=== PATIENT | female | born 1970 | race Caucasian/White ===

== ENCOUNTER 2017-06-20 05:25 | Day surgery (SDC) | payer OTHER, SELFPAY ==
[2017-06-16 14:04] LABS: Hematocrit 42.2 % (37-47); Hemoglobin 13.5 g/dl (12.0-15.0); Mean Corpuscular Hgb 28.1 pg (27.0-32.0); Mean Corpuscular Volume 87.9 fL (81-99); Mean Platelet Vol. 9.8 fl (6.2-12.0); Platelet Count 244 K/mm3 (150-450); RBC Distribution Width CV 12.6 % (11.6-14.6); RBC Distribution Width SD 40.5 fl (35.1-43.9); White Blood Count 7.8 K/mm3 (4.4-11.0)
[2017-06-16 14:06] LABS: Scan Indicated on CBC? Y/N NO
[2017-06-16 14:16] LABS: International Normalized Ratio 1.1; Prothrombin Time (Protime)PT. 13.7 SECONDS (11.7-14.9)
[2017-06-16 14:17] LABS: Partial Thromboplast Time 29.9 Seconds (24.1-36.2)
[2017-06-16 14:35] LABS: AST(SGOT) 13 U/L (15-37); Alanine Aminotransfer ALT/SGPT 17 U/L (13-56); Albumin, Serum 3.5 g/dL (3.2-5.0); Alkaline Phosphatase 73 U/L (45-117); Bilirubin, Direct < 0.05 mg/dL (0.00-0.30); Globulin 3.5 g/dL (2.2-4.2)
[2017-06-20] VITALS (9 sets, daily range): BP systolic 139–171; BP diastolic 75–89; PULSE 56–80; RESP 16; TEMP 36.4–37.3; O2SAT 94–100; BMI 31.0
--- NOTE | 2017-06-20 05:32 | EKG12_ITS ---
Test Reason : Blood Pressure : / mmHG Vent. Rate : 062 BPM Atrial Rate : 062 BPM P-R Int : 162 ms QRS Dur : 104 ms QT Int : 426 ms P-R-T Axes : 052 025 017 degrees QTc Int : 432 ms Normal sinus rhythm Low voltage QRS Borderline ECG Confirmed by BRANDON SCOTT MD ([id number]), commercial production editor MARIAH GARCIA ([id number]) on 06/23/2017 2:29:57 PM Referred By: Ryan White Confirmed By:BRANDON SCOTT MD
[2017-06-20] MEDS: Cefazolin 2 GM in 0.9% Normal Saline 100 ML IV (07:09)
--- NOTE | 2017-06-20 07:09 | RAD_ITS ---
STUDY: INTRAOPERATIVE CHOLANGIOGRAM. REASON FOR EXAM: Female, 47 years old. Laparoscopic cholecystectomy. FLUOROSCOPY TIME (if supplied): (20.5 seconds) minutes/seconds TECHNIQUE: An intraoperative cholangiogram was performed by the surgeon. Imaging was submitted. COMPARISON: None. FINDINGS: The intrahepatic biliary ducts are unremarkable. The common bile duct is unremarkable as well. No intraluminal filling defect is seen. There is free flow of contrast into the duodenum. RAD/Cholangiogram/ O R,Initial IMPRESSION: Unremarkable intraoperative cholangiogram. Electronically Signed: Burke Ford MD at 9:01 EDT Tel [phone], Service support ,
--- NOTE | 2017-06-20 07:15 | GALL_PTH ---
PATIENT: LEWIS SHUKLA LOC: [facility] – [place] U#:[id number] AGE/SX: 47/F ROOM: RE06/20/[address]: Dr. Ryan White MD : 1970 BED: DIS: 06/20/2017 SPEC #: [id number] RECD: 06/20/17 13:05 STATUS: OBED SHARMAINE #: [id number] KEY: 06/20/17 07:[address]: Ryan White DEPT: SURGICAL PATHOLOGY RECD BY: Harsha Foster ENTERED: 06/20/17 13:05 SP TYPE: [facility] DR: Dr. Abdifatah Marc DO Tissues: Gallbladder, NOS Procedures: Surgery Specimen Level III HEADER OPERATION: Laparoscopic, cholecystomy with operative cholangiograms PRE-OP DIAGNOSIS: Biliary dyskinesia, right upper quadrant pain POST-OP DIAGNOSIS: Right upper quadrant pain, biliary dyskinesia TISSUE SUBMITTED: Gallbladder MICROSCOPIC DIAGNOSIS Gallbladder, cholecystectomy: Mild chronic cholecystitis. AM:reagan 06/21/17 MICROSCOPIC DESCRIPTION Slides are reviewed. GROSS DESCRIPTION Received is one container labeled with the patient's name and designated gallbladder. The specimen consists of a gallbladder measuring 7 cm in length and 3 cm in diameter. The external surface is pink-barfield, smooth and glistening for the most part. Focally it is granular, hemorrhagic and contains cautery artifact. The gallbladder contains green-yellow mucoid bile. No stones are identified in the container or in the gallbladder. The mucosa is bile-stained and without any mass lesions. The gallbladder wall measures 0.3 cm in thickness. Sound Engineering Technician sections from the gallbladder and the cystic duct are submitted in one cassette. / SJ:reagan 06/20/17 TC:3 CPT: 79671
[2017-06-20] MEDS: Bupivacaine Mpf 0.5% 30 ML VIAL (07:45)
--- NOTE | 2017-06-20 08:26 | PCM.DC.GB ---
Discharge Diet: Light diet - advance as tolerated Discharge Activity: May Not Drive - for 2-3 days or while taking narcotic pain medications., - - Do not drive, work heavy equipment or sign legal documents for 24 hours. May shower in (days): 1 - with the bandage in place. Additional Activity Instructions:: Pain medication may cause nausea. You should typically eat light foods as you take your pain medications. Pain medication may also cause constipation. If this is a problem for you, please discuss with your doctor. Call your doctor if your incision/area has: Continuous Slow Oozing, Sudden Increased Bleeding, Increased Pain/ Swelling, Increased Redness, Foul Smelling Discharge Call your doctor if you observe: Fever of 101 or Higher Suture Line Care: Avoid Pulling/Pushing, Avoid Pinching/Bending Additional Dressing/Incision Instructions:: Leave operative bandaids on for 2 days. When you remove dressing, leave Steri-Strips on until your follow-up appointment, or until the Steri-Strips fall off on their own. Allergies/Adverse Reactions: Allergies clarithromycin [From Biaxin] Adverse Reaction (Verified 06/15/17 14:40) shakes fentanyl Adverse Reaction (Verified 06/15/17 14:40) made me feel weird latex Adverse Reaction (Verified 06/15/17 14:40) Itching Medications to take at Discharge Brompheniramine/Pseudoephed/Dm [Zwszolutlq-Ggsrabovfty-Qk Syr] 5 - 10 ml PO Q6H PRN 06/15/17 Cholecalciferol (Vitamin D3) [Vitamin D3] 2,000 unit PO DAILY 06/15/17 Lansoprazole [Prevacid] 15 mg PO DAILY 06/15/17 Vitamin B Complex 1 each PO DAILY 06/15/17 Oxycodone [Oxyir] 5 mg PO Q4H PRN PRN 7 Days #14 tab 06/20/17 The following prescriptions were given: Oxycodone [Oxyir] 5 mg PO Q4H PRN PRN 7 Days #14 tab PRN Reason: Pain Primary Care Physician: Abdifatah Marc DO [Primary Care Provider] - Please Follow Up With: Ryan White MD - Please call [phone] to schedule an appointment. When: 7 days after your surgery
--- NOTE | 2017-06-20 08:26 | PCM.OPRPT ---
Report of Operation Date of Procedure: 06/20/17 Pre-Operative Diagnosis: biliary colic, biliary dyskinesia Post-Operative Diagnosis: biliary colic, biliary dyskinesia, small cystic duct otherwise normal IOC Surgery/Procedure Performed:: laparoscopic [id number] with intraoperative cholangiogram cmo: Sagar Hernadez Type of Anesthesia:: General Anesthesiologist: Cornell Meek - ASA2 Specimen's removed: gallbladder Estimated Blood Loss (mL): <5 Fluids Replaced: 1500 Description of Procedure: The patient was brought to the operating suite. Sign in was performed verifying patient, site, position, SCIP antibiotic prophylaxis- 2 gm of Ancef and DVT prophylaxis with SCDs. Following induction of general anesthetic. The patients abdomen was prepped and draped in the usual fashion. Timeout was performed verifying patient, site, position. Local anesthetic was injected below the umbilicus. Incision made and dissection carried down to the umbilical root fascia. 2 stay sutures were placed. Incision made in the fascia, the peritoneum entered under direct visualization. A 10 mm Bernstein trocar was inserted and secured with the stay sutures. Pneumoperitoneum to 15 mmHg was insufflated. Visual inspection revealed few adhesions. The gallbladder and otherwise normal appearing intra-abdominal structures. 3 right upper quadrant 5 ports were placed in the standard position. The gallbladder was grasped retracted upward and outward. Dissection was carried out in Calots triangle. When a critical view of the neck of the gallbladder funneling of the cystic duct with no signs of aberrant ductal structures were seen, a clip was placed on the neck of the gallbladder cystic duct junction. A partial ductotomy was made. A Cholangiocath was attempted to be inserted into the duct. the duct was quite small and a standard Cholangiocath was not able to advance to the cystic duct. A smaller firm metal duct was able to be inserted into the duct and secured with a clip. Intraoperative cholangiogram was performed demonstrating filling of the cystic duct filling the common bile duct and emptying into the duodenum without signs of obstruction area and the clip and catheter were removed. 2 clips placed on the cystic duct and the cystic duct divided. Dissection was continued until the cystic artery was clearly dissected and identified. The artery was then doubly clipped proximally singly clipped distally and divided. The gallbladder was then dissected free from the gallbladder fossa using electrocautery. The gallbladder was placed in an Endobag and removed through the umbilical port site. An 0 PDS opmvea-li-bysgn suture was placed around the umbilical port site defect. Pneumoperitoneum was reestablished. The gallbladder fossa was checked for hemostasis. With good hemostasis, the area was irrigated and aspirated to clear. 5 ports were removed under direct visualization with no signs of bleeding. Pneumoperitoneum was released. The Bernstein trocar was removed. The umbilical fascial suture was secured area did skin was closed with interrupted 4-0 Monocryl subcuticular sutures. Steri-Strips and bandages were applied. The patient was brought to recovery room in stable condition.
--- NOTE | 2017-06-20 08:29 | OP.PCM_ITS ---
Report of Operation Date of Procedure: 06/20/17 Pre-Operative Diagnosis: biliary colic, biliary dyskinesia Post-Operative Diagnosis: biliary colic, biliary dyskinesia, small cystic duct otherwise normal IOC Surgery/Procedure Performed:: laparoscopic [id number] with intraoperative cholangiogram web programmer: Sagar Hernadez Type of Anesthesia:: General Anesthesiologist: Cornell Meek - ASA2 Specimen's removed: gallbladder Estimated Blood Loss (mL): <5 Fluids Replaced: 1500 Description of Procedure: The patient was brought to the operating suite. Sign in was performed verifying patient, site, position, SCIP antibiotic prophylaxis- 2 gm of Ancef and DVT prophylaxis with SCDs. Following induction of general anesthetic. The patient?s abdomen was prepped and draped in the usual fashion. Timeout was performed verifying patient, site , position. Local anesthetic was injected below the umbilicus. Incision made and dissection carried down to the umbilical root fascia. 2 stay sutures were placed. Incision made in the fascia, the peritoneum entered under direct visualization. A 10 mm Bernstein trocar was inserted and secured with the stay sutures. Pneumoperitoneum to 15 mmHg was insufflated. Visual inspection revealed few adhesions. The gallbladder and otherwise normal appearing intra- abdominal structures. 3 right upper quadrant 5 ports were placed in the standard position. The gallbladder was grasped retracted upward and outward. Dissection was carried out in Calot?s triangle. When a critical view of the neck of the gallbladder funneling of the cystic duct with no signs of aberrant ductal structures were seen, a clip was placed on the neck of the gallbladder cystic duct junction. A partial ductotomy was made. A Cholangiocath was attempted to be inserted into the duct. the duct was quite small and a standard Cholangiocath was not able to advance to the cystic duct. A smaller firm metal duct was able to be inserted into the duct and secured with a clip. Intraoperative cholangiogram was performed demonstrating filling of the cystic duct filling the common bile duct and emptying into the duodenum without signs of obstruction area and the clip and catheter were removed. 2 clips placed on the cystic duct and the cystic duct divided. Dissection was continued until the cystic artery was clearly dissected and identified. The artery was then doubly clipped proximally singly clipped distally and divided. The gallbladder was then dissected free from the gallbladder fossa using electrocautery. The gallbladder was placed in an Endobag and removed through the umbilical port site. An 0 PDS pomile-zo-uoheb suture was placed around the umbilical port site defect. Pneumoperitoneum was reestablished. The gallbladder fossa was checked for hemostasis. With good hemostasis, the area was irrigated and aspirated to clear. 5 ports were removed under direct visualization with no signs of bleeding. Pneumoperitoneum was released. The Bernstein trocar was removed. The umbilical fascial suture was secured area did skin was closed with interrupted 4 -0 Monocryl subcuticular sutures. Steri-Strips and bandages were applied. The patient was brought to recovery room in stable condition.
== END 2017-06-20 12:20 | disposition home or self-care (01) ==
LOC: SDC 05:25 → AC 05:26
PROVIDERS: Family Provider Student in an Organized Health Care Education/Training Program; PCP Student in an Organized Health Care Education/Training Program; Visit Provider Surgery
PROC: (CPT 47563; principal; 2017-06-20 06:55)
DX: K80.50 Calculus of bile duct without cholangitis or cholecystitis without obstruction (principal); K80.44 Calculus of bile duct with chronic cholecystitis without obstruction; K82.8 Other specified diseases of gallbladder; K21.9 Gastro-esophageal reflux disease without esophagitis; D50.9 Iron deficiency anemia, unspecified; Z87.891 Personal history of nicotine dependence
CPT/HCPCS: 47563; 36415; 74300; 76000; 80076; 85027; 85610; 85730; 88304; 93005; J7120; J2310; J2405; J3490

== ENCOUNTER → 2017-11-24 17:35 | Outpatient (CLI) | payer OTHER, SELFPAY ==
--- NOTE | 2017-11-24 17:40 | CT_ITS ---
STUDY: CT MAXILLOFACIAL SINUSES REASON FOR EXAM: Female, 47 years old. Sinusitis RADIATION DOSAGE (If Supplied By Facility): CTDIvol = ( 33.06 ) mGy, DLP = ( 804.92 ) mGycm TECHNIQUE: The patient was scanned in a multi detector CT scanner. High resolution axial imaging was performed without the administration of intravenous contrast material. Sagittal and coronal images were reconstructed. Individualized dose optimization techniques were used for this CT. COMPARISON: None. FINDINGS: : NASAL SEPTUM: Slightly bowed to the right. CRIBRIFORM PLATE AND SID ASHISH: The fovea ethmoidalis, lateral lamella and lamina cribrosa are normal. The anterior ethmoidal notch is normal with no supraorbital pneumatization. The olfactory fossa is symmetric with a Keros type II. No skull base dehiscence LAMINA PAPYRACEA: No remote orbital fracture and no orbital prolapse into the ethmoidal sinus . BONY VALVERDE: No dehiscence, demineralization or thickness TURBINATES: Normal thickness and no paradoxical orientation. No russell bullosa . No turbinectomy OSTIOMEATAL UNITS: Patent with no ethmoidectomy, maxillary antrostomy, uncinectomy or turbinoplasty SPHENOETHMOIDAL RECESS: Patent FRONTAL SINUSES: Well developed and pneumatized with no abnormal soft tissue attenuations in them ETHMOID AIR CELLS: Aggar Nasi air cells are noted. No Mumtaz air cells. Both the anterior and posterior ethmoidal air cells are clear of abnormal soft tissue attenuations MAXILLARY SINUSES: Normal with no arrested pneumatization or hyperpneumatization and no abnormal soft tissue attenuations SPHENOID SINUSES: Normal with conchal, presellar or sellar type pneumatization. No dehiscence into carotid canal and no optic nerve dehiscence within the sphenoid sinus. No Onodi air cells ORBITS: Negative SKULL BASE/CRANIOVERTEBRAL JUNCTION/UPPER CERVICAL SPINE.: Normal IMPRESSION: Negative examination with no maxillo-infundibular, nasofrontal, ostiomeatal unit or sphenoethmoidal pattern of obstructive disease. There is also no evidence of sinonasal polyposis. Mild bowing of the nasal septum to the right Electronically Signed: Toby Lund, at 1:36 EDT Tel , Service support , CT/Sinus/Facial Bone
== END ==
PROVIDERS: Family Provider Student in an Organized Health Care Education/Training Program; PCP Student in an Organized Health Care Education/Training Program; Visit Provider Otolaryngology
DX: J32.9 Chronic sinusitis, unspecified (principal)
CPT/HCPCS: 70486

== ENCOUNTER → 2019-05-08 16:30 | Outpatient (CLI) | payer OTHER, SELFPAY ==
[2017-06-20 05:43] VITALS: BMI 31.0
== END ==
PROVIDERS: PCP Student in an Organized Health Care Education/Training Program; Referring Provider Obstetrics & Gynecology; Visit Provider Obstetrics & Gynecology
DX: N95.1 Menopausal and female climacteric states (principal)
CPT/HCPCS: 36415